=== PATIENT | female | born 1985 | race Hispanic/Latino ===

== ENCOUNTER 2017-08-12 19:58 | Emergency (ER) | payer SELFPAY ==
--- NOTE | 2017-08-12 21:07 | RAD REPORT ---
EXAM DESCRIPTION: Christopher Gutierrez (2 Views)08/12/2017 8:55 pm CLINICAL HISTORY: Cough COMPARISON: 2007 FINDINGS: The lungs appear clear of acute infiltrate. The heart is normal size IMPRESSION: No acute abnormalities displayed
--- NOTE | 2017-08-12 21:58 | ER ---
Nurse's Notes [facility] Name: Cheryl Griffin Age: 32 yrs Sex: Female : 1985 Arrival Date: 08/12/2017 Time: 19:58 Bed 23 Private MD: Diagnosis: Streptococcal pharyngitis Presentation: 08/12 20:04 Presenting complaint: Patient states: Cough, fever, sore throat since Wednesday. Reports aj1 that she vomited once today. Transition of care: patient was not received from another setting of care. Onset of symptoms was August 09, 2017. Risk Assessment: Do you want to hurt yourself or someone else? Patient reports no desire to harm self or others. Initial Sepsis Screen: Does the patient meet any 2 criteria? No. Patient's initial sepsis screen is negative. Does the patient have a suspected source of infection? No. Patient's initial sepsis screen is negative. Care prior to arrival: None. 20:04 Method Of Arrival: Ambulatory aj1 20:04 Acuity: PUMA 4 aj1 Triage Assessment: 20:08 General: Appears in no apparent distress. comfortable, Behavior is calm, cooperative, aj1 appropriate for age. Pain: Complains of pain in left aspect of posterior pharynx and right aspect of posterior pharynx Pain does not radiate. Pain currently is 8 out of 10 on a pain scale. 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 - Social history:: Smoking status: Patient/guardian denies using tobacco. - Ebola Screening: : Patient denies travel to an Ebola-affected area in the 21 days before illness onset. Screenin:20 Abuse screen: Denies threats or abuse. rk2 20:20 Nutritional screening: No deficits noted. Tuberculosis screening: No symptoms or risk rk2 factors identified. Fall Risk None identified. Assessment: 20:20 General: Appears in no apparent distress. well groomed, well developed, well nourished, rk2 Behavior is calm, cooperative. 20:20 Neuro: Level of Consciousness is alert, obeys commands, Oriented to person, place, rk2 time, situation. Respiratory: Airway is patent Respiratory effort is even, unlabored, Respiratory pattern is regular, symmetrical. Derm: Skin is pink, warm \T\ dry. Vital Signs: 20:08 BP 126 / 93; Pulse 93; Resp 18; Temp 98.9; Pulse Ox 96% on R/A; Weight 101.6 kg; Height aj1 5 ft. 0 in. (152.40 cm); Pain 8/10; 22:03 BP 126 / 92; Pulse 88; Resp 18; Pulse Ox 96% on R/A; rk2 20:08 Body Mass Index 43.75 (101.60 kg, 152.40 cm) aj1 ED Course: 19:58 Patient arrived in ED. ds1 20:07 Triage completed. aj1 20:08 Arm band placed on Patient placed in an exam room. aj1 20:12 David Peterson PA is PHCP. cp 20:12 David Nj MD is Attending Physician. cp 20:12 Mary Ellen Regan RN is Primary Nurse. rk2 20:20 Patient has correct armband on for positive identification. Bed in low position. Call rk2 light in reach. 20:52 Patient moved to radiology via wheelchair. bb2 20:53 X-ray completed. Patient tolerated procedure well. bb2 20:53 Patient moved back from radiology. bb2 20:54 XRAY Chest Pa And Lat (2 Views) In Process Unspecified. EDMS 22:12 No provider procedures requiring assistance completed. Patient did not have IV access rk2 during this emergency room visit. Administered Medications: 22:06 Drug: Clindamycin 300 mg Route: PO; rk2 22:13 Follow up: Response: given \T\ DC rk2 22:07 Not Given (Patient Refused): Zofran 4 mg PO once rk2 Outcome: 21:58 Discharge ordered by . cp 22:12 Discharged to home ambulatory. rk2 22:12 Condition: good 22:12 Discharge instructions given to patient, Prescriptions given X 2. 22:13 Patient left the ED. rk2 Signatures: Dispatcher [employer] EDNH Skye Edouard RN RN aj1 Jennifer Flynn ds1 Daivd Peterson PA PA Caroline Grimes bb2 Mary Ellen Regan, RN RN rk2
--- NOTE | 2017-08-12 21:58 | EDPHYS ---
Physician Documentation [facility] Name: Cheryl Griffin Age: 32 yrs Sex: Female : 1985 Arrival Date: 08/12/2017 Time: 19:58 Bed 23 Private MD: ED Physician David Nj HPI: 08/12 20:30 This 32 yrs old Female presents to ER via Ambulatory with complaints of Cough. cp 20:30 The patient or guardian reports cough, that is intermittent, with productive sputum, cp that is white. Onset: The symptoms/episode began/occurred 3 day(s) ago. Associated signs and symptoms: Pertinent positives: fever, sore throat, vomiting, Pertinent negatives: chest pain, diarrhea. 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 - Social history:: Smoking status: Patient/guardian denies using tobacco. - Ebola Screening: : Patient denies travel to an Ebola-affected area in the 21 days before illness onset. ROS: 20:35 Constitutional: Negative for body aches, chills, fever, poor PO intake. cp 20:35 Eyes: Negative for injury, pain, redness, and discharge. cp 20:35 ENT: Positive for rhinorrhea, sore throat, Negative for drainage from ear(s), ear pain, difficulty swallowing, difficulty handling secretions. 20:35 Cardiovascular: Negative for chest pain, edema, palpitations. 20:35 Respiratory: Positive for cough, Negative for shortness of breath, wheezing. 20:35 Abdomen/GI: Positive for nausea and vomiting, Negative for diarrhea, constipation. 20:35 Skin: Negative for cellulitis, rash. 20:35 Neuro: Negative for headache, weakness. 20:35 All other systems are negative. Exam: 20:38 Constitutional: The patient appears in no acute distress, alert, awake, non-toxic, well cp developed, well nourished. 20:38 Head/Face: Normocephalic, atraumatic. cp 20:38 Eyes: Periorbital structures: appear normal, Conjunctiva: normal, no exudate, no injection, Sclera: no appreciated abnormality, Lids and lashes: appear normal, bilaterally. 20:38 ENT: External ear(s): are unremarkable, Ear canal(s): are normal, clear, TM's: dullness, bilaterally, Nose: is normal, Mouth: Lips: moist, Oral mucosa: moist, Posterior pharynx: Airway: no evidence of obstruction, patent, Tonsils: bilaterally enlarged, with erythema, no exudate, Uvula: midline, non-edematous, erythema, that is moderate, exudate, is not appreciated, Voice: is normal. 20:38 Neck: ROM/movement: is normal, is supple, no range of motions limitations, no meningismus, no nuchal rigidity, Lymph nodes: no appreciated lymphadenopathy. 20:38 Chest/axilla: Inspection: normal, Palpation: is normal, no crepitus, no tenderness. 20:38 Cardiovascular: Rate: normal, Rhythm: regular. 20:38 Respiratory: the patient does not display signs of respiratory distress, Respirations: normal, no use of accessory muscles, no retractions, no splinting, no tachypnea, Breath sounds: bronchial sounds, that are mild, are heard diffusely, stridor, is not appreciated, + upper airway congestion. 20:38 Abdomen/GI: Inspection: abdomen appears normal, Palpation: abdomen is soft and non-tender, in all quadrants, rebound tenderness, is not appreciated, voluntary guarding, is not appreciated, involuntary guarding, is not appreciated. 20:38 Back: pain, is absent, ROM is normal. 20:38 Skin: cellulitis, is not appreciated, no rash present. Vital Signs: 20:08 BP 126 / 93; Pulse 93; Resp 18; Temp 98.9; Pulse Ox 96% on R/A; Weight 101.6 kg; Height aj1 5 ft. 0 in. (152.40 cm); Pain 8/10; 22:03 BP 126 / 92; Pulse 88; Resp 18; Pulse Ox 96% on R/A; rk2 20:08 Body Mass Index 43.75 (101.60 kg, 152.40 cm) aj1 MDM: 20:12 Patient medically screened. cp 21:55 Data reviewed: vital signs, nurses notes, lab test result(s), radiologic studies, plain cp films. 21:55 Differential Diagnosis: Influenza Upper Respiratory Infection Pharyngitis Otitis Media cp Pneumonia. Test interpretation: by ED physician or midlevel provider: plain radiologic studies. 08/12 20:28 Order name: Influenza Screen (a \T\ B); Complete Time: 21:52 cp 08/12 20:28 Order name: Strep; Complete Time: 21:52 cp 08/12 21:52 Interpretation: Abnormal: GP A STREP SC \T\nbsp; GROUP A STREP SCREEN-- \T\nbsp; \T\nbsp; cp POSITIVE. 08/12 21:20 Order name: Urine Dipstick--Ancillary (enter results) [facility] 08/12 21:20 Order name: Urine --Ancillary (enter results) [facility] 08/12 21:21 Order name: Urine Dipstick-Ancillary [facility] 08/12 21:21 Order name: Urine --Ancillary [facility] 08/12 20:12 Order name: Urine Test (obtain specimen); Complete Time: 21:17 cp 08/12 20:12 Order name: Urine Dipstick-Ancillary (obtain specimen); Complete Time: 21:17 cp 08/12 20:28 Order name: XRAY Chest Pa And Lat (2 Views); Complete Time: 21:52 cp Administered Medications: 22:06 Drug: Clindamycin 300 mg Route: PO; rk2 22:13 Follow up: Response: given \T\ DC rk2 22:07 Not Given (Patient Refused): Zofran 4 mg PO once rk2 Disposition: 08/13 06:04 Co-signature as Attending Physician, David Nj MD I agree with the assessment and mary ann plan of care. Disposition: 08/12/17 21:58 Discharged to Home. Impression: Streptococcal pharyngitis. - Condition is Stable. - Discharge Instructions: Salt Water Gargle, Strep Throat. - Prescriptions for Clindamycin HCl 300 mg Oral Capsule - take 1 capsule by ORAL route every 6 hours for 10 days; 40 capsule. Ibuprofen 800 mg Oral Tablet - take 1 tablet by ORAL route every 8 hours As needed take with food; 30 tablet. - Medication Reconciliation Form, Thank You Letter, Antibiotic Education, Prescription Opioid Use form. - Follow up: Private Physician; When: 2 - 3 days; Reason: Recheck today's complaints. - Problem is new. - Symptoms have improved. Signatures: Dispatcher [employer] EDSkye Persaud RN RN aj1 David Nj MD MD cha Page, Corey, PA PA cp Mary Ellen Regan, RN RN rk2 Corrections: (The following items were deleted from the chart) 08/12 22:13 21:58 08/12/2017 21:58 Discharged to Home. Impression: Streptococcal pharyngitis. rk2 Condition is Stable. Forms are Medication Reconciliation Form, Thank You Letter, Antibiotic Education, Prescription Opioid Use. Follow up: Private Physician; When: 2 - 3 days; Reason: Recheck today's complaints. Problem is new. Symptoms have improved. cp
[2017-08-12] MEDS ORDERED: CLINDAMYCIN HCL 150 MG CAP ONE (22:06)
[2017-08-12 23:00] LABS: Urine Blood 3+ (NEG); Urine Glucose NEGATIVE (NEG); Urine Protein 1+ (NEG); Urine Specific Gravity 1.015 (1.005-1.030); Urine pH 7.5 (5.0-7.0)
== END 2017-08-12 22:13 | disposition home or self-care (01) ==
LOC: ER 19:58
DX: J02.0 Streptococcal pharyngitis (principal); Z88.6 Allergy status to analgesic agent; Z88.0 Allergy status to penicillin
CPT/HCPCS: 71046; 81003; 81025; 87081; 87804; 99283

== ENCOUNTER 2024-04-18 16:33 | Emergency (ER) | payer SELFPAY ==
[2024-04-18 19:25] LABS: Absolute Basophils 0.1 K/uL (0-0.5); Absolute Eosinophils 0.9 K/uL (0-0.5); Absolute Lymphocytes (CBC) 2.2 K/uL (0.7-4.9); Absolute Monocytes 0.8 K/uL (0.1-1.3); Absolute Neutrophil 6.6 K/uL (1.8-8.0); Basophils % 0.7 % (0-1.3); Eosinophils % 8.8 % (0-4.4); Hematocrit 47.2 % (36.0-45.0); Lymphocytes % 20.6 % (15.3-44.8); MCH 32.6 pg (27.0-35.0); MCV 95.9 fL (80-100); MPV 6.7 fL (7.6-11.3); Monocytes % 7.2 % (3.3-12.3); Neutrophils % 62.7 % (41.7-73.7); Nucleated Red Blood Cells % 0.1 % (0-0); Platelets 256 thou/uL (152-406); RBC Red Blood Cell Count 4.92 M/uL (3.86-4.86)
[2024-04-18 19:37] LABS: ALT/SGPT 18 U/L (13-56); Albumin 3.3 g/dL (3.4-5.0); Albumin/Globulin Ratio 0.6 (1.1-1.8); Alkaline Phosphatase 93 U/L (45-117); Anion Gap 8.8 mEq/L (5.0-15.0); BUN Blood Urea Nitrogen 21 mg/dL (7-18); Bicarbonate 25 mEq/L (21-32); Bilirubin Total 0.5 mg/dL (0.2-1.0); Globulin 5.1 g/dL (2.3-3.5); Glomerular Filtration Rate 91 ml/min (=/>90); Glucose Level 86 mg/dL (74-106); Lipase 36 U/L (13-75); Potassium 3.8 mEq/L (3.5-5.1); Protein, Total 8.4 g/dL (6.4-8.2); Sodium Level 136 mEq/L (136-145)
[2024-04-18 20:07] LABS: Specific Gravity 1.018 (1.005-1.030); Sqamous Epithelial <5 /HPF (None Seen); Urine Bacteria <20 /HPF (<20); Urine Bilirubin NEGATIVE (Negative); Urine Blood 1+ (Negative); Urine Clarity Turbid (Clear); Urine Color Light-Yellow (Yellow); Urine Culture Reflex Order NOT NEEDED; Urine Glucose NEGATIVE (Negative); Urine Ketones NEGATIVE (Negative); Urine Microscopic Reflex YN ORDER UMIC; Urine Mucus Slight /HPF (None Seen); Urine Nitrite NEGATIVE (Negative); Urine Protein 1+ (Negative); Urine Urobilinogen Normal (Normal); Urine WBC <5 /HPF (<5)
[2024-04-18] MEDS ORDERED: NA CHLORIDE 0.9% 1,000 ML ONE (20:11)
[2024-04-18] MEDS ORDERED: KETOROLAC 30 MG/ML INJ ONE (20:11)
[2024-04-18] MEDS ORDERED: ONDANSETRON 4 MG/2 ML VIAL ONE (20:11)
[2024-04-18 20:17] LABS: AST/SGOT < 10 U/L (15-37)
--- NOTE | 2024-04-18 20:37 | RAD REPORT ---
EXAMINATION: CT ABDOMEN AND PELVIS WITHOUT CONTRAST -stone protocol CLINICAL INDICATION: Female, 38 years old.FLANK PAIN TECHNIQUE: CT abdomen and pelvis was performed, without IV contrast, as per department protocol. Axia l, sagittal and coronal reconstructions were obtained. One or more of the following dose reduction techniques were used: Automated exposure control, adjustment of the mA and/or kV according to the pat ient size, and/or iterative reconstruction. Unless otherwise specified, incidental findings do not require dedicated imaging follow-up. [id number]. IV CONTRAST: Not administered. COMPARISON: None FINDINGS: The lack of intravenous contrast limits the sensitivity of this exam for evaluation of solid visceral organs, vascular structures, and retroperitoneum. LOWER CHEST: No acute process identified.No significant pericardial effusion. UPPER GI: No significant abnormality. LIVER: No significant focal abnormality. GALLBLADDER/BILE DUCTS: No biliary ductal dilatation.? PANCREAS: No mass, ductal dilation, or farooq-pancreatic fluid. SPLEEN: Unremarkable. ADRENALS: No adrenal masses. KIDNEYS AND URETERS: No hydronephrosis.Within the limitations of a noncontrast CT, no suspicious michael l lesions.Small bilateral renal calculi. ABDOMINAL AORTA AND OTHER VESSELS: Normal caliber aorta and IVC. PERITONEUM: No abnormal free fluid. No free air. LYMPH NODES: No pathologic lymphadenopathy. ABDOMINAL WALL: Unremarkable SMALL BOWEL/COLON: Small bowel has normal course and caliber. No colonic wall thickening or pericolon ic inflammatory changes.Normal appendix. URINARY BLADDER: Underdistended but grossly unremarkable. REPRODUCTIVE ORGANS: No pathologic process. MUSCULOSKELETAL: ADDITIONAL FINDINGS: None. IMPRESSION: No acute or significant abnormalities in the abdomen or pelvis, with evaluation limited by lack of IV contrast. Bilateral nonobstructive nephrolithiasis. Normal appendix
--- NOTE | 2024-04-18 20:51 | ER ---
Nurse's Notes [facility] Name: Cheryl Griffin Age: 38 yrs Sex: Female : 1985 Arrival Date: 04/18/2024 Time: 16:33 Bed 16 Private MD: Diagnosis: Flank Pain Presentation: 04/18 18:50 Chief complaint: Patient states: low back pain. Coronavirus screen: Client denies kj2 travel out of the [place] in the last 14 days. Ebola Screen: No symptoms or risks identified at this time. Initial Sepsis Screen: Does the patient meet any 2 criteria? No. Patient's initial sepsis screen is negative. Does the patient have a suspected source of infection? No. Patient's initial sepsis screen is negative. Risk Assessment: Do you want to hurt yourself or someone else? Patient reports no desire to harm self or others. Onset of symptoms was April 18, 2024. 18:50 Method Of Arrival: Ambulatory kj2 20:58 Acuity: PUMA 3 kj2 Triage Assessment: 18:50 General: Appears in no apparent distress. Behavior is calm, cooperative. Pain: kj2 Complains of pain in left lower quadrant and left upper quadrant Pain currently is 8 out of 10 on a pain scale. Neuro: Level of Consciousness is awake, alert, obeys commands, Oriented to person, place, time, situation. Cardiovascular: Patient's skin is warm and dry. Respiratory: Airway is patent Respiratory effort is unlabored. GI: No deficits noted. : Reports pain in lower back. 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 - Infectious Disease History:: Denies. - Social history:: Smoking status: unknown. Screenin:50 [facility] ED Fall Risk Assessment (Adult) History of falling in the last 3 months, kj2 including since admission No falls in past 3 months (0 pts) Confusion or Disorientation No (0 pts) Intoxicated or Sedated No (0 pts) Impaired Gait No (0 pts) Mobility Assist Device Used No (0 pt) Altered Elimination No (0 pt) Score/Fall Risk Level 0 - 2 = Low Risk Maintained a safe environment, Hourly rounding (assess needs \T\ fall precautionary measures) done. Abuse screen: Denies threats or abuse. Denies injuries from another. Nutritional screening: No deficits noted. Tuberculosis screening: No symptoms or risk factors identified. Assessment: 18:45 General: Appears in no apparent distress. Behavior is calm, cooperative. Pain: kj2 Complains of pain in left lower quadrant and left upper quadrant Pain currently is 7 out of 10 on a pain scale. Neuro: Level of Consciousness is awake, alert, obeys commands, Oriented to person, place, time. Cardiovascular: Patient's skin is warm and dry. Respiratory: Airway is patent Respiratory effort is even, unlabored. GI: Reports epigastric pain. : Reports pain in lower back. 19:56 Reassessment: Patient appears in no apparent distress at this time. Patient and/or kj2 family updated on plan of care and expected duration. Pain level reassessed. Patient is alert, oriented x 3, equal unlabored respirations, skin warm/dry/pink. 20:54 Reassessment: Patient appears in no apparent distress at this time. Patient and/or kj2 family updated on plan of care and expected duration. Pain level reassessed. Patient is alert, oriented x 3, equal unlabored respirations, skin warm/dry/pink. Vital Signs: 18:50 BP 138 / 82; Pulse 82; Resp 20; Temp 98; Pulse Ox 100% on R/A; kj2 19:50 BP 146 / 82; Pulse 84; Resp 20; Pulse Ox 100% on R/A; kj2 20:25 BP 133 / 79; Pulse 71; Resp 18; Temp 98.6; Pulse Ox 100% ; rk3 ED Course: 18:27 Patient arrived in ED. kb3 18:31 Perlita Uriostegui [facility]-C [facility]. kb 18:31 Lucia Garcia MD is Attending Physician. kb 18:50 Arm band placed on Patient placed in an exam room. kj2 18:50 Patient has correct armband on for positive identification. Bed in low position. Call kj2 light in reach. Adult w/ patient. Provided Education on: call light. 19:01 CBC with Automated Diff Sent. cc6 19:01 Comprehensive Metabolic Panel Sent. cc6 19:01 Lipase Sent. cc6 19:01 Initial lab(s) drawn, by me, sent to lab. Inserted saline lock: 20 gauge in left cc6 antecubital area, using aseptic technique. Blood collected. Flushed with 10 mL NS Missed attempt(s): 20 gauge Bleeding controlled, band aid applied, catheter tip intact. 19:32 Colleen Nelson, RN is Primary Nurse. kj2 19:46 Urinalysis w/ reflexes Sent. rk3 20:25 CT Stone Protocol In Process Unspecified. EDMS 20:58 Triage completed. kj2 21:01 No provider procedures requiring assistance completed. IV discontinued, intact, kj2 bleeding controlled, No redness/swelling at site. Pressure dressing applied. Administered Medications: 20:00 Drug: NS 0.9% IV 1000 ml IV at 1000 ml once; to be given as a bolus over 60 minutes kj2 Route: IV; Rate: 1000 ml; Site: left antecubital; 21:05 Follow up: Response: No adverse reaction kj2 21:05 Follow up: IV Status: Completed infusion; IV Intake: 1000ml kj2 20:03 Drug: Ketorolac IVP 15 mg IVP once Route: IVP; Site: left antecubital; kj2 21:04 Follow up: Response: No adverse reaction kj2 20:04 Drug: Ondansetron IVP 4 mg IVP once; over 2 minutes Route: IVP; Site: left antecubital; kj2 21:04 Follow up: Response: No adverse reaction kj2 Medication: 20:56 VIS not applicable for this client. kj2 Intake: 21:05 IV: 1000ml; Total: 1000ml. kj2 Outcome: 20:50 Discharge ordered by . renuka 21:01 Discharged to home ambulatory, with family, kj2 21:01 Condition: stable 21:01 Discharge instructions given to patient, family, Instructed on discharge instructions, follow up and referral plans. Demonstrated understanding of instructions, follow-up care, 21:26 Patient left the ED. kj2 Signatures: Dispatcher [employer] EDPerlita Wheeler, JUANIS LORENZO-Emilia Ramos, RN RN kb3 Colleen Nelson, RN RN kj2 Lisa Barbosa cc6 Morgan Hobbs rk3
--- NOTE | 2024-04-18 20:51 | EDPHYS ---
Physician Documentation [facility] Name: Cheryl Griffin Age: 38 yrs Sex: Female : 1985 Arrival Date: 04/18/2024 Time: 16:33 Bed 16 Private MD: ED Physician Lucia Garcia HPI: 04/18 18:36 This 38 yrs old Female presents to ER via Unassigned with complaints of flank kb pain. 18:36 Patient is a 38-year-old female who presents for bilateral flank pain that is worse on kb the left that began 3 days ago. Reports vomiting x 2 yesterday. Reports urinary frequency and did have 1 episode of burning with urination this morning. Denies fever, diarrhea.. 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 - Infectious Disease History:: Denies. - Social history:: Smoking status: unknown. ROS: 18:36 Constitutional: As per HPI kb Exam: 18:36 Constitutional: This is a well developed, well nourished patient who is awake, alert, kb and in no acute distress. Head/Face: Normocephalic, atraumatic. ENT: Moist Mucous membranes Cardiovascular: Regular rate Respiratory: Respirations even and unlabored. No increased work of breathing. Talking in full sentences Skin: Warm, dry with normal turgor. Normal color. MS/ Extremity: Pulses equal, no cyanosis. Neurovascular intact. Full, normal range of motion. Neuro: Awake and alert, GCS 15, oriented to person, place, time, and situation. 18:36 Abdomen/GI: Inspection: abdomen appears normal, Bowel sounds: normal, Palpation: soft, in all quadrants, mild abdominal tenderness, in the left upper quadrant and left lower quadrant, 18:36 Back: CVA tenderness, that is mild, is noted bilaterally, Vital Signs: 18:50 BP 138 / 82; Pulse 82; Resp 20; Temp 98; Pulse Ox 100% on R/A; kj2 19:50 BP 146 / 82; Pulse 84; Resp 20; Pulse Ox 100% on R/A; kj2 20:25 BP 133 / 79; Pulse 71; Resp 18; Temp 98.6; Pulse Ox 100% ; rk3 MDM: 18:31 Medical Screening Exam initiated kb 18:37 Data reviewed: vital signs, nurses notes. kb 21:32 Differential diagnosis: nephrolithiasis, pyelonephritis, UTI. Counseling: I had a kb detailed discussion with the patient and/or guardian regarding the historical points, exam findings, and any diagnostic results supporting the discharge/admit diagnosis, lab results, radiology results, the need for outpatient follow up, a family practitioner, to return to the emergency department if symptoms worsen or persist or if there are any questions or concerns that arise at home. 04/18 18:27 Order name: CBC with Automated Diff; Complete Time: 19:33 EDMS 04/18 18:27 Order name: Comprehensive Metabolic Panel; Complete Time: 20:20 EDMS 04/18 18:27 Order name: Lipase; Complete Time: 20:20 EDMS 04/18 19:55 Order name: Urinalysis w/ reflexes; Complete Time: 20:09 EDMS 04/18 20:09 Order name: CT Stone Protocol; Complete Time: 20:46 kb 04/18 18:51 Order name: IV Start; Complete Time: 19:01 kb Administered Medications: 20:00 Drug: NS 0.9% IV 1000 ml IV at 1000 ml once; to be given as a bolus over 60 minutes kj2 Route: IV; Rate: 1000 ml; Site: left antecubital; 21:05 Follow up: Response: No adverse reaction kj2 21:05 Follow up: IV Status: Completed infusion; IV Intake: 1000ml kj2 20:03 Drug: Ketorolac IVP 15 mg IVP once Route: IVP; Site: left antecubital; kj2 21:04 Follow up: Response: No adverse reaction kj2 20:04 Drug: Ondansetron IVP 4 mg IVP once; over 2 minutes Route: IVP; Site: left antecubital; kj2 21:04 Follow up: Response: No adverse reaction kj2 Disposition Summary: 04/18/24 20:50 Discharge Ordered Notes: Location: Home kb Condition: Stable kb Diagnosis - Flank Pain kb Followup: kb - With: Emergency Department - When: As needed - Reason: Worsening of condition Followup: kb - With: Private Physician - When: 2 - 3 days - Reason: Recheck today's complaints, Continuance of care, Re-evaluation by your physician Discharge Instructions: - Discharge Summary Sheet kb - Flank Pain, Adult, [id number] kb Forms: - Medication Reconciliation Form kb - Antibiotic Education kb - Prescription Opioid Use kb - Patient Portal Instructions kb - Leadership Thank You Letter renuka Signatures: Dispatcher [employer] Perlita Bravo, Emilia Uribe RN RN kb3 Colleen Nelson RN RN kj2
[2024-04-19 02:00] VITALS: O2SAT 100
[2024-04-19 02:03] VITALS: BP 133/79; TEMP 98.6
== END 2024-04-18 21:26 | disposition home or self-care (01) ==
LOC: ER 16:33
DX: R10.9 Unspecified abdominal pain (principal)
CPT/HCPCS: 36415; 74176; 76377; 80053; 81001; 83690; 85025; J2405; J7030